=== PATIENT | male | born 1990 | race Caucasian/White ===

== ENCOUNTER 2017-09-13 20:53 | Emergency (ER) | payer MEDICAID ==
[~2017-09-13] VITALS: Ht 170.2 cm; Wt 61.2 kg
[2017-09-13] MEDS ORDERED: IV NORMAL SALINE 1000 ML BAG IV ONE ×2 (21:45)
[2017-09-13] MEDS ORDERED: LOPERAMIDE HCL 2 MG CAPSULE PO ONE (21:45)
[2017-09-13] MEDS ORDERED: LOPERAMIDE HCL 2 MG CAPSULE ONE (21:56)
[2017-09-13] MEDS ORDERED: ONDANSETRON 4 MG/2 ML VIAL ONE (21:56)
[2017-09-13 21:57] LABS: BASOPHILS % (AUTO) 0.1 % (0.0-2.0); HEMATOCRIT 44.9 % (36.7-47.1); HEMOGLOBIN 15.3 g/dL (12.5-16.3); LYMPHOCYTES # (AUTO) 0.6 K/uL (20.0-40.0); LYMPHOCYTES % (AUTO) 8.9 % (20.5-51.5); MEAN CORPUSCULAR HGB CONC 34 g/dL (32.5-36.3); MEAN CORPUSCULAR VOLUME 90.6 fL (73.0-96.2); MONOCYTES # (AUTO) 0.5 K/uL (2.0-10.0); MONOCYTES % (AUTO) 7.3 % (0.0-11.0); NEUTROPHILS # (AUTO) 5.5 K/uL (1.8-8.9); NEUTROPHILS % (AUTO) 83.7 % (38.5-71.5); PLATELET COUNT (AUTO) 221 K/uL (152-348); RED BLOOD CELL COUNT(AUTO) 4.96 MIL/uL (4.06-5.63); WHITE BLOOD COUNT (AUTO) 6.6 K/uL (3.6-10.2)
[2017-09-13] MEDS: ONDANSETRON 4 MG/2 ML VIAL IV ONE (21:57)
[2017-09-13 22:00] LABS: *BILIRUBIN,URIN NEGATIVE (NEGATIVE); *BLOOD, URINE Trace-intact (NEGATIVE); *CLARITY,URINE CLEAR (CLEAR); *COLOR,URINE YELLOW (YELLOW); *KETONES,URINE NEGATIVE (NEGATIVE); *PROTEIN,URINE NEGATIVE (NEGATIVE); *UROBILINOGEN,URINE 0.2 E.U./dl (NORMAL); LEUKOCYTE ESTERASE ,URINE NEGATIVE (NEGATIVE); NITRITE, URINE NEGATIVE (NEGATIVE); UGLUCOSE NEGATIVE (NEGATIVE)
[2017-09-13 22:05] LABS: BACTERIA,URINE FEW /HPF (NONE SEEN); SQUAMOUS EPITHELIAL CELL,UR FEW /HPF (NONE SEEN); WBC,URINE 0-3 /HPF (0-3)
[2017-09-13 22:07] LABS: CREATININE 1.1 mg/dL (0.6-1.3); ETHANOL < 3 MG/DL (0-0); POTASSIUM 3.7 mmol/L (3.5-5.1)
[2017-09-13 22:14] LABS: *AMPHETAMINE, URINE POSITIVE (NEGATIVE); *BARBITURATE, URINE NEGATIVE (NEGATIVE); *CANNABINOID, URINE POSITIVE (NEGATIVE); *COCCAINE, URINE POSITIVE (NEGATIVE); *OPIATE, URINE NEGATIVE (NEGATIVE); *PHENCYCLIDINE SCREEN,URINE NEGATIVE (NEGATIVE)
[2017-09-13 22:24] LABS: BILIRUBIN,DIRECT 0.1 mg/dL (0.0-0.2); BILIRUBIN,TOTAL 0.5 mg/dL (0.2-1.0); TOTAL PROTEIN, SERUM 7.1 g/dL (6.4-8.2)
[2017-09-14] MEDS ORDERED: IV NORMAL SALINE 1000 ML BAG IV ONE (00:15)
[2017-09-14] MEDS ORDERED: IBUPROFEN 600 MG TABLET ONE (00:56)
[2017-09-14] MEDS: ONDANSETRON 4 MG/2 ML VIAL IV ONE (00:58)
[2017-09-14] MEDS ORDERED: IBUPROFEN 600 MG TABLET PO ONE (01:00)
--- NOTE | 2017-09-14 01:24 | NUR ---
Patient discharged to home in stable conditon. Written and verbal after care instructions given. Patient verbalizes understanding of instructions.
[2017-09-14 01:25] VITALS: BP 103/77
== END 2017-09-14 01:25 | disposition home or self-care (01) ==
LOC: ER 20:54
DX: E86.0 Dehydration (principal); F15.10 Other stimulant abuse, uncomplicated; R11.10 Vomiting, unspecified; R19.7 Diarrhea, unspecified
CPT/HCPCS: 36415; 80307; 83690; 85025; 93005; A4663; G0480; J2405; J7030